=== PATIENT | female | born 1955 | race Caucasian/White ===

== ENCOUNTER 2020-10-10 15:19 | Emergency (ER) | payer BC, SELFPAY ==
[2020-10-10 15:25] VITALS: BP 139/99; PULSE 80; RESP 16; TEMP 35.8; O2SAT 99
--- NOTE | 2020-10-10 15:52 | ED.FEMALEGU ---
HPI - Female Genitourinary General Chief complaint: Urogenital-Female Stated complaint: PAINFUL URINATION Time Seen by Provider: 10/10/20 15:39 Source: patient and RN notes reviewed Mode of arrival: ambulatory Limitations: no limitations History of Present Illness HPI Narrative: Patient presents today complaining of urgency, dysuria, and urinary frequency that started this morning and has worsened throughout the day today. Denies hematuria, abdominal pain, left-sided back pain. Patient was on a course of Macrobid last month for UTI. States her symptoms never fully resolved. She has tried no [id number] treatment prior to arrival. MD elicited complaint: dysuria Related Data Home Medications Medication Instructions Recorded Confirmed citalopram 40 mg PO DAILY 10/10/20 10/10/20 galcanezumab-gnlm [Emgality 120 mg SUBCUT MONTHLY 10/10/20 10/10/20 Syringe] propranolol 20 mg PO DAILY 10/10/20 10/10/20 Allergies Allergy/AdvReac Type Severity Reaction Status Date / Time Sulfa (Sulfonamide Allergy Mild HEADACHES Verified 10/05/15 22:49 Antibiotics) codeine Allergy Unknown Rash Verified 10/05/15 22:49 Review of Systems Review of Systems: Narrative: CONSTITUTIONAL: Denies body aches, fever, chills, or sweats. EYES: Denies visual changes, redness, or discharge. ENT: Denies rhinorrhea, congestion, sore throat, or otalgia. CARDIOVASCULAR: Denies chest pain, palpitations, or edema. RESPIRATORY: Denies cough or dyspnea. GASTROINTESTINAL: Denies abdominal pain, nausea, vomiting, or diarrhea. GENITOURINARY: Denies hematuria. + Dysuria, urgency, frequency SKIN: Denies rash, itching, or wounds. MUSCULOSKELETAL: Denies joint pain, or myalgia. + Left low back pain NEUROLOGIC: Denies headache, numbness, tingling, or weakness. PSYCH: Denies depression or anxiety. FOR[facility]LY [facility] Past Medical History Medical History (Updated 10/10/20 @ 16:01 by Chery Erwin, STANLEY, JACQUELINE) Delivery with history of Kidney stones Migraines Surgical History Surgical History (Updated 10/10/20 @ 16:00 by Chery Erwin, STANLEY, BC) History of cholecystectomy Comments At time of signature, I have reviewed and agree with nursing past medical, surgical, social and family history unless otherwise noted. Please see nursing chart for further information. There is no relevant family history pertinent to the presenting complaint Exam Narrative: Exam Narrative: GENERAL: Well-appearing, well-nourished, and in no acute distress. HEAD: Normocephalic, atraumatic. EYES: EOMI. No redness or drainage. Conjunctivae normal. ENT: Mucous membranes pink and moist. NECK: Normal AROM. CHEST: No respiratory distress. Clear to auscultation. HEART: Regular rate and rhythm. No murmur appreciated. Normal peripheral pulses. ABDOMEN: Soft, nontender, nondistended, normal active bowel sounds. -CVAT MUSCULOSKELETAL: No bony tenderness. EXTREMITIES: Normal range of motion. No edema. SKIN: Warm, dry, no rash. Capillary refill normal. Normal skin turgor. NEURO: No focal deficits. Alert and oriented x3. Gait steady. PSYCH: Normal affect. No signs of depression or anxiety. Course Vital Signs Vital signs: Vital Signs Temperature 96.5 F L 10/10/20 15:25 Pulse Rate 80 10/10/20 15:25 Respiratory Rate 16 10/10/20 15:25 Blood Pressure 139/99 H 10/10/20 15:25 Pulse Oximetry 99 10/10/20 15:25 Temperature 96.5 F L 10/10/20 15:25 Pulse Rate 80 10/10/20 15:25 Respiratory Rate 16 10/10/20 15:25 Blood Pressure 139/99 H 10/10/20 15:25 Pulse Oximetry 99 10/10/20 15:25 Reviewed. Pt has been instructed to follow up with her PCP regarding her elevated blood pressure today. MDM - Female Genitourinary Differential Diagnosis Differential diagnosis: Likely urinary tract infection, cystitis and other (Pyelonephritis, interstitial cystitis, vulvovaginitis) Lab Data Attestation: I reviewed the patient's lab results. Labs: Urine Gluc
== END 2020-10-10 16:07 | disposition home or self-care (01) ==
PROVIDERS: Emergency Provider Nurse Practitioner; PCP Internal Medicine
DX: N30.01 Acute cystitis with hematuria (principal); Z87.442 Personal history of urinary calculi
CPT/HCPCS: 81003; 87077; 87086; 87088; 87186; 99203; G0463

== ENCOUNTER → 2023-11-03 08:51 | Outpatient (CLI) | payer MEDICARE, OTHER, SELFPAY ==
--- NOTE | ~2023-11-03 | XR_ITS ---
Supine and upright views of the abdomen Clinical history: Renal stone COMPARISON: 08/14/2014 Findings: Bowel gas pattern is nonspecific. No evidence for obstruction or free air. There are bilate ral renal stones, largest in the left upper pole measuring 6 mm. Cholecystectomy clips are present.. Osseous structures are intact. Impression: Bilateral nephrolithiasis, as above. Reviewed, dictated and finalized at location . [facility] Impression: Bilateral nephrolithiasis, as above.
--- NOTE | ~2023-11-03 | CT_ITS ---
Non-contrast CT scan of the Abdomen and Pelvis Clinical indication: Kidney stone Technique: 2.5 mm axial scans were obtained through the abdomen and pelvis without intravenous or or al contrast. Dose reduction technique was used on this scan by utilizing automated exposure control a nd iterative reconstruction technique. The dose-length product (DLP) was 1168.43 mGy-cm. Findings: Images through the lung bases reveal no abnormalities. Small bilateral renal stones are present, nonobstructing. No ureteral stone or hydronephrosis on eith er side. Stable small left renal angiomyolipoma. The liver, spleen, pancreas, and adrenals appear normal. Cholecystectomy clips are present. There is no aortic aneurysm. There is no evidence of bowel obstruction. Normal appendix. Images through the pelvis were performed. There is no evidence of ascites or lymphadenopathy. Urinary bladder unremarkable. No adnexal mass seen. Impression: Small bilateral nonobstructing renal stones. No ureteral stone or hydronephrosis on either side. Reviewed, dictated and finalized at [facility]. MAKER Impression: Small bilateral nonobstructing renal stones. No ureteral stone or hydronephrosi s on either side.
== END ==
PROVIDERS: Visit Provider Urology
DX: N20.0 Calculus of kidney (principal)
CPT/HCPCS: 74018; 74176